=== PATIENT | male | born 1940 | race Caucasian/White ===

== ENCOUNTER 2016-11-03 05:45 | Emergency (ER) | payer MEDICARE, OTHER ==
--- NOTE | ~2016-11-03 | CT4 ---
[facility] A Service of [facility] RADIOLOGY TEXT RESULTS PATIENT: BETH MANZO LOCATION: [place] : 40 UNIT #: [id number] AGE: [address]: Luis Bonds MD SEX: M ORDER DR: [id number] [facility] [address] [place], [place] [address] [id number] MR#: [id number] Acc #: [id number] NAME: BETH MANZO : 1940 SEX: M STUDY DATE/TIME: 11/03/2016 8:34 UNIT: [facility] ROOM: STUDY DESCRIPTION: CT Abd and Pelv Wo Cont Attending Physician: Luis Bonds M.D. Ordering Physician: [facility] Primary Care Physician: Avelino Parker M.D. MEDICAL IMAGING REPORT This report is preliminary unless electronic signature is present EXAM CT abdomen and pelvis without contrast DATE: 11/03/16 PROCEDURE: Axial CT abdomen and pelvis without contrast with multiplanar reformats. COMPARISON: Prior CT most recent 03/02/16 HISTORY Upper abdominal cramping. The CT exam was performed with one or more of the following radiation dose reduction techniques: automatic exposure control, adjustment of mA and/or kV according to patient size, and iterative reconstruction. FINDINGS The lung bases show no acute disease. ABDOMEN: The liver and gallbladder and spleen and pancreas appear unremarkable on these unenhanced images. The adrenal glands are normal. 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 The right kidney is unremarkable except for a small upper pole simple cyst. There is an exophytic lesion in the mid to lower pole medially about 1.6 cm in size, also likely a simple cyst. There is no hydronephrosis or nephrolithiasis and the aorta is normal in caliber. There are some mildly prominent small bowel loops, and there may be a transition in the right lower quadrant. Findings are not felt sufficient [facility] A Service of [facility] RADIOLOGY TEXT RESULTS PATIENT: BETH MANZO LOCATION: [facility] : 40 UNIT #: [id number] AGE: [address]: Luis Bonds MD SEX: M ORDER DR: to suggest obstruction though perhaps a partial obstruction could cause this appearance. There is sigmoid colonic diverticulosis but no CT evidence of diverticulitis. There is degenerative change in the spine but no acute bony abnormality. The prominent small bowel loops represent a change from CT abdomen and pelvis 03/02/16. IMPRESSION Mildly prominent mid small bowel loops with decompression of the distal most ileum and a transition zone in the right lower quadrant suggests perhaps an early or partial obstruction. The dilated loops are relatively small, but newly prominent when compared to the prior CT exam. No abscess or free air or other acute abnormality. Dictated by... Austin Fishman M.D. THIS IS AN ELECTRONICALLY VERIFIED REPORT Austin Fishman M.D. at 11/05/2016 3:46 PM BERTA/abhinav TD: 11/03/2016 13:10 JOB #: [id number] MEDICAL IMAGING REPORT COPY
[~2016-11-03 05:45] MED LIST: AVANDIA PO; AVANDIA4 MG PO; BENAZEPRIL HCL40 MG PO; BENAZEPRIL PO; CIPRO PO; CLEOCIN PO; CLONIDINE HCL0.1 MG PO; CLONIDINE TOP; CORAL CALCIUM PO; GLUCOPHAGE500 M1 PO; HYDROCHLOROTH12.5 MG PO; KEFLEX500 MG PO; LOMOTIL TABLET1 TAB PO; LOTENSIN40 MG PO; MIRALAX17 GM PO; NORCO 5/325 TAB1 TAB PO; NORVASC PO; NORVASC10 MG PO; PRILOSEC PO; PRILOSEC20 MG PO; PROTONIX PO; STARLIX PO; STARLIX60 MG PO; TEKTURNA PO; TEKTURNA300 MG PO; ZYVOX PO
[2016-11-03 05:59] LABS: POC - CKMB 4.5 ng/mL (0.0-7.9); POC - TROPONIN <0.05 ng/mL (<=0.05)
[2016-11-03 06:26] LABS: BASOPHIL# 0.1 X10e3 (0-0.3); BASOPHIL% 0.4 % (0-2.5); EOSINOPHIL# 0.1 X10e3 (0-0.7); EOSINOPHIL% 0.5 % (0.0-7.0); HEMATOCRIT 46.7 % (38.0-50.0); HEMOGLOBIN 15.1 gm/dL (13.0-16.0); LYMPHOCYTE# 1.3 X10e3 (1.0-3.5); LYMPHOCYTE% 6.9 % (17.0-45.0); MEAN CELL VOLUME 86.2 FL (83-96); MEAN CORPUSCULAR HEMOGLOBIN 27.8 PG (28-34); MEAN CORPUSCULAR HGB CONC 32.3 g/dL (30-36); MEAN PLATELET VOLUME 8.7 FL (6.5-11.5); MONOCYTE# 0.7 X10e3 (0-1.0); MONOCYTE% 3.5 % (3.0-12.0); NEUTROPHIL% 88.7 % (40-75); PLATELET COUNT 281 X10e3 (140-420); RED BLOOD COUNT 5.41 X10e (3.90-5.60); RED CELL DISTRIBUTION WIDTH 14.4 % (11.0-15.5); WHITE BLOOD COUNT 19.2 X10e3 (4.0-10.5)
[2016-11-03 06:27] LABS: DIFF IND YES
[2016-11-03 06:56] LABS: ALBUMIN SERUM 4.5 g/dL (3.5-5.0); BILIRUBIN, DIRECT 0.1 mg/dL (0.0-0.2); BILIRUBIN,INDIRECT 0.5 mg/dL (0.0-0.9); BILIRUBIN,TOTAL 0.6 mg/dL (0.2-2.0); BUN/CREATININE RATIO 16.92; CALCIUM SERUM 9.5 mg/dL (8.4-10.2); CREATININE SERUM 1.3 mg/dL (0.6-1.4)
[2016-11-03 07:40] LABS: PLATELET ESTIMATE NORMAL (NORMAL)
[2016-11-03 10:00] LABS: URINE SOURCE CLEAN CATCH
[2016-11-03 10:03] LABS: URINE APPEARANCE CLEAR; URINE BILIRUBIN NEG (NEG); URINE BLOOD NEG (NEG); URINE COLOR YELLOW; URINE GLUCOSE NEG (NEG); URINE KETONE NEG (NEG); URINE LEUKOCYTE ESTERASE NEG (NEG); URINE NITRATE NEG (NEG); URINE PROTEIN NEG (NEG); URINE SPECIFIC GRAVITY 1.024 (1.003-1.035); URINE UROBILINOGEN 0.2 MG/DL (NEG)
[2016-11-03 10:15] LABS: CULTURE INDICATED? NO
== END 2016-11-03 10:43 | disposition home or self-care (01) ==
LOC: CED 05:45
PROVIDERS: Emergency Medicine
DX: R10.9 Unspecified abdominal pain (principal); E11.9 Type 2 diabetes mellitus without complications; E78.5 Hyperlipidemia, unspecified; I10 Essential (primary) hypertension; Z88.8 Allergy status to other drugs, medicaments and biological substances; Z79.899 Other long term (current) drug therapy
CPT/HCPCS: 36415; 74176; 80048; 80076; 81003; 82150; 82553; 83690; 84484; 85025; 99284